=== PATIENT | male | born 1955 | race African-American/Black ===

== ENCOUNTER 2018-08-19 06:15 | Emergency (ER) | payer BC ==
[2018-08-19] MEDS ORDERED: ONDANSETRON HCL INJ/PF 4 MG/2 ML SDV IV ONE (06:56)
[2018-08-19] MEDS ORDERED: NORMAL SALINE 1000 ML 1,000 ML IV ONE (06:56)
--- NOTE | 2018-08-19 07:00 | ER Document Report ---
ED General - General Chief Complaint: Abdominal Pain Stated Complaint: ABDOMINAL PAIN Time Seen by Provider: 08/19/18 06:42 - HPI Notes: Patient is a 8-year-old male who presents to the emergency department for evaluation of abdominal pain, vomiting, diarrhea. Symptoms been present for 6 days. He denies any fevers or chills. He has had multiple episodes of nonbloody, nonbilious emesis. He states he has had innumerable episodes of diarrhea. He denies any blood in his stool. He states he has crampy abdominal pain is in the epigastric region. It seems to be worsened by food. Nothing seems to make it better. He is still urinating. He states last night he tried to eat a hamburger and shortly thereafter vomited. He denies any exotic travel. No recent antibiotics. 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 - Related Data Allergies/Adverse Reactions: No Known Allergies Allergy (Unverified 08/19/18 06:20) Past Medical History - General Information source: Patient - Social History Smoking Status: Current Every Day Smoker Frequency of alcohol use: Occasional - States he drinks one 12 pack a week Family History: Other - Alzheimer's Review of Systems - Review of Systems Constitutional: No symptoms reported EENT: No symptoms reported Cardiovascular: No symptoms reported Respiratory: No symptoms reported Gastrointestinal: See HPI Genitourinary: No symptoms reported Musculoskeletal: No symptoms reported Skin: No symptoms reported Neurological/Psychological: No symptoms reported Physical Exam - Vital signs Vitals: Temp Pulse Resp BP Pulse Ox 97.6 F 55 L 16 145/86 H 98 08/19/18 06:19 08/19/18 06:19 08/19/18 06:19 08/19/18 06:19 08/19/18 06:19 - Notes Notes: Vital signs reviewed, please refer to chart. Patient is normocephalic, atraumatic. Pupils equal round, reactive to light. Neck is supple without meningismus. Heart is regular rate and rhythm. Lungs are clear to auscultation bilaterally. Abdomen is soft, with mild epigastric and left upper quadrant tenderness to palpation. No rebound or guarding. Normoactive bowel sounds.. Extremities without cyanosis, clubbing, edema. Peripheral pulses are equal. Skin is warm and dry. Patient is awake, alert, neurological exam is nonfocal. Course - Re-evaluation Re-evalutation: 08/19/18 08:11 Patient was evaluated here for nausea, vomiting, diarrhea, abdominal pain. 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 His laboratory investigations are entirely unremarkable. He was feeling significantly improved after IV fluids and Zofran. I explained to the patient that it may be possible that he has Salmonella, but treatment would not vary. I discussed the presence of white blood cells in his urine. He denies any discharge, denies any urinary symptom. We will send it for culture, will contact him if this should become positive. We will send the patient home with Zofran prescription, instructions to start with only clear liquids and advance his diet very slowly. He voiced understanding to this. He is to return to the emergency department with worsening or new concerning symptoms of any sort. 08/19/18 08:13 - Vital Signs Vital signs: Temp Pulse Resp BP Pulse Ox 97.6 F 55 L 16 145/86 H 98 08/19/18 06:19 08/19/18 06:19 08/19/18 06:19 08/19/18 06:19 08/19/18 06:19 - Laboratory Result Diagrams: 08/19/18 07:21 08/19/18 07:21 Laboratory results interpreted by me: 08/19/18 08/19/18 06:57 07:21 RDW 14.8 H Urine Blood SMALL H Urine Urobilinogen 2.0 H Ur Leukocyte Esterase SMALL H Discharge - Discharge Clinical Impression: Epigastric abdominal pain Nausea and vomiting Qualifiers: Vomiting type: unspecified Vomiting Intractability: non-intractable Qualified Code(s): R11.2 - Nausea with vomiting, unspecified Diarrhea Qualifiers: Diarrhea type: presumed infectious Qualified Code(s): R19.7 - Diarrhea, unspecified Condition: Stable Disposition: HOME, SELF-CARE Instructions: Abdominal Pain ([facility]), Antinausea Medication ([facility]), Vomiting ([facility]), Diarrhea, Nonspecific ([facility]) Additional Instructions: Rest. Clear liquids only at first, then advance slowly to bland diet. Take Zofran as needed for nausea. Follow-up with primary care next week. Return to the emergency department with worsening or new concerning symptoms. Referrals: NOEL CASTILLO MD [ACTIVE STAFF] - Follow up as needed
[2018-08-19 07:20] LABS: APPEARANCE,URINE SLIGHTLY-CLOUDY; BILIRUBIN,URINE NEGATIVE (NEGATIVE); COLOR,URINE YELLOW; GLUCOSE, URINE NEGATIVE (NEGATIVE); KETONES,URINE NEGATIVE (NEGATIVE); LEUKOCYTE ESTERASE,URINE SMALL (NEGATIVE); NITRITE,URINE NEGATIVE (NEGATIVE); PROTEIN,URINE NEGATIVE (NEGATIVE)
[2018-08-19 07:40] LABS: ABSOLUTE LYMPHOCYTES (AUTO) 3.9 10^3/uL (0.5-4.7); ABSOLUTE NEUT (AUTO) 5.1 10^3/uL (1.7-8.2); BASOPHILS % (AUTO) 0.2 % (0-2); EOSINOPHILS % (AUTO) 0.4 % (0-6); HEMATOCRIT 41.9 % (37.9-51.0); HEMOGLOBIN 14.3 g/dL (13.5-17.0); LYMPHOCYTES % (AUTO) 38.6 % (13-45); MEAN CORPUSCULAR HEMOGLOBIN 28.9 pg (27.0-33.4); MEAN CORPUSCULAR VOLUME 85 fl (80-97); MONOCYTES % (AUTO) 9.7 % (3-13); PLATELET COUNT 215 10^3/uL (150-450); RED BLOOD COUNT 4.94 10^6/uL (4.35-5.55); RED CELL DISTRIBUTION WIDTH 14.8 % (11.5-14.0); SEGMENTED NEUTROPHILS % (AUTO) 51.1 % (42-78); TOTAL CELLS COUNTED % (AUTO) 100 %
[2018-08-19 08:02] LABS: ALANINE AMINOTRANSFERASE 28 U/L (21-72); ALKALINE PHOSPHATASE 80 U/L (38-126); ANION GAP 6 (5-19); ASPARTATE AMINO TRANSFERASE 24 U/L (17-59); BILIRUBIN,DIRECT 0.2 mg/dL (0.0-0.4); BILIRUBIN,TOTAL 0.6 mg/dL (0.2-1.3); BLOOD UREA NITROGEN 13 mg/dL (7-20); CALCIUM 9.9 mg/dL (8.4-10.2); CARBON DIOXIDE 27 mmol/L (22-30); CHLORIDE 106 mmol/L (98-107); GLUCOSE 103 mg/dL (75-110); LIPASE 90.9 U/L (23-300); POTASSIUM 4.7 mmol/L (3.6-5.0); SODIUM 139.1 mmol/L (137-145); TOTAL PROTEIN 7.4 g/dL (6.3-8.2)
[2018-08-19 08:46] VITALS: BP 158/68
== END 2018-08-19 08:49 | disposition home or self-care (01) ==
LOC: ER 06:15
DX: R10.13 Epigastric pain (principal); R11.2 Nausea with vomiting, unspecified; R19.7 Diarrhea, unspecified; R10.9 Unspecified abdominal pain; F17.200 Nicotine dependence, unspecified, uncomplicated
CPT/HCPCS: 99284; 96361; 96374; 36415; 87086; 83690; 85025; 80053; 81001; J2405; J7030